=== PATIENT | female | born 1995 | race Caucasian/White ===

== ENCOUNTER 2024-11-01 10:26 | Inpatient (IN) | payer BC ==
[2024-11-01] MEDS: Lactated Ringers 1,000 ML IV SCH ×2 (12:15→16:37)
[2024-11-01] MEDS ORDERED: fentaNYL 100 MCG/2 ML SDV ONE (12:36)
[2024-11-01] MEDS ORDERED: Morphine PF 10 MG/10 ML SDV ONE (12:36)
[2024-11-01] MEDS ORDERED: Sodium Chloride 0.9% 10 ML Syringe FLUSH PRN ×2 (13:26→13:27)
[2024-11-01] MEDS ORDERED: ceFAZolin 2 GM in Water For Injection, Sterile 20 ML IVPUSH ONE (13:26)
[2024-11-01] MEDS ORDERED: Citric Acid/Sodium Citrate Solution 30 ML Cup PO ONE ×3 (13:26→13:33)
[2024-11-01] MEDS ORDERED: Sodium Chloride 0.9% 2.5 ML Syringe FLUSH PRN ×2 (13:26→13:27)
[2024-11-01] MEDS ORDERED: Lactated Ringers 1,000 ML IV SCH (13:30)
[2024-11-01] MEDS ORDERED: Oxytocin/0.9 % Sodium Chloride 30 UNIT/500 ML BAG IV SCH ×2 (13:30→13:45)
[2024-11-01 13:36] LABS: IMMATURE GRAN ABSOLUTE AUTO 0.03 K/uL (0.00-0.05); IMMATURE GRAN PERCENT AUTO 0.4 % (0.0-0.4); MEAN PLATELET VOLUME 8.5 fL (9.4-12.3); NRBC ABSOLUTE 0.00 K/uL (0.00-0.02); NRBC PERCENT 0.0 /100WBC (0.0-0.2); PLATELET COUNT,PLT 338 K/uL (150-400); RED BLOOD CELL COUNT 4.22 M/uL (4.10-5.30); WHITE BLOOD CELL COUNT,WBC 8.56 K/uL (3.9-11.3)
[2024-11-01] MEDS ORDERED: Propofol 200 MG/20 ML SDV ONE (13:52)
[2024-11-01] MEDS ORDERED: Oxytocin 10 Units/1 ML SDV ONE (14:10)
[2024-11-01] MEDS ORDERED: Acetaminophen/oxyCODONE 325-5 MG Tab PO PRN ×2 (14:44→15:11)
[2024-11-01] MEDS ORDERED: Nalbuphine 10 MG/1 ML Vial IVPUSH PRN (14:44)
[2024-11-01] MEDS ORDERED: fentaNYL 50 MCG/ML SDV IVPUSH PRN (14:44)
[2024-11-01] MEDS ORDERED: Albuterol 0.083% 2.5 MG/3 ML Neb Soln NEB PRN (14:44)
[2024-11-01] MEDS ORDERED: Naloxone 0.4 MG/ML SDV IVPUSH PRN ×2 (14:44→15:11)
[2024-11-01] MEDS ORDERED: Ondansetron 4 MG/2 ML SDV IVPUSH PRN ×3 (14:44→15:11)
[2024-11-01] MEDS ORDERED: fentaNYL 100 MCG/2 ML SDV IVPUSH PRN (14:44)
[2024-11-01] MEDS ORDERED: diphenhydrAMINE 50 MG/ML SDV IVPUSH PRN ×2 (14:44→15:11)
[2024-11-01] MEDS ORDERED: Lanolin 100% Cream 7 GM Tube TOP PRN (15:11)
[2024-11-01] MEDS ORDERED: Oxytocin 10 Units/1 ML SDV IM PRN (15:11)
[2024-11-01] MEDS: Ketorolac 30 MG/ML SDV IVPUSH SCH (16:29)
[2024-11-03] MEDS: Acetaminophen/oxyCODONE 325-5 MG Tab PO PRN (00:16)
== END 2024-11-03 13:55 | disposition home or self-care (01) | DRG 540 ==
LOC: MW.OBCHECK 10:26 → MW.OB 10:27 → MW.OBCHECK 13:47 → MW.OB 13:48
PROVIDERS: ADMIT Obstetrics & Gynecology; ATTEND Obstetrics & Gynecology
PROC: 4A1HXCZ Monitoring of Products of Conception, Cardiac Rate, External Approach (ICD-10-PCS; 2024-11-01)
PROC: 10D00Z1 Extraction of Products of Conception, Low, Open Approach (ICD-10-PCS; principal; 2024-11-01 13:07)
DX: O76 Abnormality in fetal heart rate and rhythm complicating labor and delivery (principal); O40.3XX0 Polyhydramnios, third trimester, not applicable or unspecified; O32.1XX0 Maternal care for breech presentation, not applicable or unspecified; Z3A.38 38 weeks gestation of pregnancy; Z37.0 Single live birth
CPT/HCPCS: 01961; 36415; 59025; 59514; 64999; 85014; 85018; 85027; 86592; 86850; 86900; 86901; A9270-GY; J0690; J1885; J2274; J2371; J2590; J2704; J3010; J7120